=== PATIENT | male | born 1995 | race Two or more races ===

== ENCOUNTER 2023-09-27 13:57 | Emergency (ER) | payer MEDICAID, OTHER ==
[~2023-09-27] VITALS: Ht 165.1 cm; Wt 65.9 kg
[2023-09-27 14:50] VITALS: BP 117/70; PULSE 101; RESP 18; TEMP 98.5; O2SAT 99
[2023-09-27] MEDS: HYDROcodone-ACET 5/325MG TAB PO ONE (15:00)
[2023-09-27] MEDS ORDERED: HYDR-4902 PO (15:19)
== END 2023-09-27 15:53 | disposition home or self-care (01) ==
LOC: ER 13:57
DX: S82.142A Displaced bicondylar fracture of left tibia, initial encounter for closed fracture (principal); V43.92XA Unspecified car occupant injured in collision with other type car in traffic accident, initial encounter; Y93.89 Activity, other specified; Y92.488 Other paved roadways as the place of occurrence of the external cause; Y99.8 Other external cause status
CPT/HCPCS: 29505; 73562